=== PATIENT | female | born 1990 ===

== ENCOUNTER 2020-04-08 10:03 | Outpatient (REF) | payer SELFPAY ==
[2020-04-13 15:22] LABS: SARS-CoV-2 RNA Undetected (Undetected); SARS-CoV-2 Specimen Source Nasal
== END 2020-04-08 10:23 ==
LOC: NCHCN 10:03
PROVIDERS: PCP Internal Medicine; Visit Provider Internal Medicine
DX: R50.9 Fever, unspecified (principal); Z20.828 Contact with and (suspected) exposure to other viral communicable diseases
CPT/HCPCS: U0003